=== PATIENT | female | born 1950 ===

== ENCOUNTER 2018-10-20 11:04 | Day surgery (SDC) | payer MEDICARE ==
[2018-10-20 12:54] VITALS: BMI 34.5
[2018-10-20] MEDS ORDERED: Lactated Ringer's 500 ML IV ONE (12:58)
[2018-10-20] MEDS ORDERED: Propofol 10 mg/ml Inj (20 ML) ONE (14:57)
[2018-10-20 15:40] VITALS: RESP 20; O2SAT 100
[2018-10-20 15:53] VITALS: BP 122/75; PULSE 64; TEMP 98.1
== END 2018-10-20 16:59 | disposition home or self-care (01) ==
LOC: H.ENDO 11:04
PROVIDERS: ATTEND Internal Medicine Gastroenterology
DX: Z86.010 Personal history of colon polyps (principal); D12.3 Benign neoplasm of transverse colon; K57.30 Diverticulosis of large intestine without perforation or abscess without bleeding
CPT/HCPCS: 45385; 88305; J2001; J2704; J7120